=== PATIENT | female | born 1995 | race Caucasian/White ===

== ENCOUNTER 2017-03-28 07:47 | Emergency (ER) | payer BC ==
[2017-03-28 07:59] VITALS: BP 133/83; PULSE 79; RESP 18; TEMP 98.1; O2SAT 98
[2017-03-28] MEDS ORDERED: PROPARACAINE 0.5% 15 ML OPHT DROP ONE (08:08)
[2017-03-28] MEDS ORDERED: FLUORESCEIN SODIUM 1 MG STRIP OP ONE (08:08)
--- NOTE | 2017-03-28 08:20 | EDPHY ---
H & P Time Seen by Provider: 03/28/17 07:54 HPI/ROS: This patient awakened with left red eye associated with mild discomfort and matting of her eyelashes with yellow discharge this morning. She has no right eye symptoms. She occasionally wears contacts but mostly wears glasses. She notes no exacerbating factors for her symptoms. ROS: No fevers or chills. No other constitutional symptoms HEENT: She reports minimal sore throat over the past 24 hours and mild ear ache. No nasal congestion or other complaints. She thinks she may have allergies causing her sore throat. No trauma to the affected eye. Pulmonary: No cough Integumentary: No facial lesions or skin rash. 5 point ROS is otherwise negative. Past Medical/Surgical History: Asthma Smoking Status: Never smoked Physical Exam: Physical Exam Vital signs are normal. General: No acute distress HEENT: Nose: Clear oropharynx no erythema exudates or dysphonia. Ears: Clear bilaterally Neck: No cervical lymphadenopathy. Eyes: Pupils equal and react to light. Extraocular motions are intact. There is conjunctival injection to the left eye with mild yellow discharge. On slit- lamp exam after proparacaine anesthesia appreciate no corneal abnormalities. Fluorescein dye stain is also performed with no corneal abnormalities noted. Lids and lashes are normal. Right eye exam is normal. Visual acuity is reviewed as per nurse's documentation. Lungs: No respiratory distress. Cardiac: Brisk capillary refill is intact throughout. Skin: No rash or pallor. No facial skin lesions or lip lesions. Neuro: Alert and oriented x3 with no sensorimotor deficits. Initial differential diagnosis: Bacterial conjunctivitis versus viral versus allergic. Constitutional: Initial Vital Signs Temperature (C) 36.7 C 03/28/17 07:56 Heart Rate 79 03/28/17 07:56 Respiratory Rate 18 03/28/17 07:56 Blood Pressure 133/83 H 03/28/17 07:56 O2 Sat (%) 98 03/28/17 07:56 O2 Delivery Mode Room Air Allergies/Adverse Reactions: No Known Allergies Allergy (Unverified 03/28/17 07:55) Home Medications: Medication Instructions Recorded Albuterol 03/28/17 Bcp 03/28/17 Ofloxacin 0.3% [Ocuflox 0.3% (RX)] 2 drops EACHEYE Q1 #1 btl 08/15/Marnie Lea 03/28/17 MDM/Departure - [facility] ED Course/Re-evaluation: Given the eyelash matting and discharge, I think this conjunctivitis is most likely bacterial. I counseled patient regarding. Appreciate no evidence of keratitis or other corneal abnormalities. - Depart Disposition: Home, Routine, Self-Care Clinical Impression: Conjunctivitis Qualifiers: Conjunctivitis type: acute Acute conjunctivitis type: bacterial Laterality: left Qualified Code(s): H10.32 - Unspecified acute conjunctivitis, left eye Condition: Good Instructions: Conjunctivitis (ED) Additional Instructions: Diagnosis: Conjunctivitis Plan: Ocuflox antibiotic drops Wash hands frequently No work today. No contacts until after the conjunctivitis has resolved. Return for any significant worsening despite treatment plan Stand Alone Forms: Work Excuse Prescriptions: Ofloxacin 0.3% [Ocuflox 0.3% (RX)] 2 drops EACHEYE Q1 #1 btl Referrals: [facility] [Other] - As per Instructions
== END 2017-03-28 08:26 | disposition home or self-care (01) ==
LOC: CED 07:47
DX: H10.32 Unspecified acute conjunctivitis, left eye (principal); J45.909 Unspecified asthma, uncomplicated